=== PATIENT | female | born 2000 | race Caucasian/White ===

== ENCOUNTER 2020-06-12 15:29 | Emergency (ER) | payer OTHER ==
[~2020-06-12] VITALS: Ht 162.6 cm; Wt 110.9 kg
[2020-06-12] MEDS ORDERED: AMOXICILLIN875 MG PO (17:33)
[2020-06-12 17:40] VITALS: BP 153/67
== END 2020-06-12 17:40 | disposition home or self-care (01) ==
LOC: ED 15:29
DX: J02.9 Acute pharyngitis, unspecified (principal); Z20.822 Contact with and (suspected) exposure to COVID-19

== ENCOUNTER 2021-10-04 17:47 | Emergency (ER) | payer OTHER ==
[~2021-10-04] VITALS: Ht 162.6 cm; Wt 111.5 kg
[~2021-10-04 17:47] MED LIST: AMOXICILLIN875 MG PO
[2021-10-04] MEDS ORDERED: NEXPLANON68 MG SC (19:09)
[2021-10-04] MEDS ORDERED: AMOXICILLIN500 MG PO (19:22)
[2021-10-04 19:40] VITALS: BP 128/78
== END 2021-10-04 19:40 | disposition home or self-care (01) ==
LOC: ED 17:47
DX: J02.9 Acute pharyngitis, unspecified (principal); R05.9 Cough, unspecified; R52 Pain, unspecified; Z20.822 Contact with and (suspected) exposure to COVID-19